=== PATIENT | female | born 1985 | race Hispanic/Latino ===

== ENCOUNTER 2024-08-30 06:39 | Emergency (ER) | payer SELFPAY ==
[~2024-08-30] VITALS: Ht 167.6 cm; Wt 127.1 kg
[2024-08-30 06:58] VITALS: PULSE 85; RESP 16; TEMP 96.5
[2024-08-30] MEDS ORDERED: CIPRO500 MG PO (07:14)
[2024-08-30] MEDS ORDERED: METRONIDAZOLE500 MG PO (07:15)
[2024-08-30] MEDS ORDERED: ONDANSETRON ODT4 MG PO (07:16)
[2024-08-30] MEDS: ACETAMINOPHEN 325 MG TAB PO ONE (07:22)
[2024-08-30 07:28] VITALS: BP 118/58; PULSE 79; RESP 16; TEMP 96.7; O2SAT 98
== END 2024-08-30 07:25 | disposition home or self-care (01) ==
LOC: FSED 07:05
DX: R10.13 Epigastric pain (principal); A09 Infectious gastroenteritis and colitis, unspecified; R11.0 Nausea
CPT/HCPCS: 81025; 99284

== ENCOUNTER 2024-11-20 22:24 | Emergency (ER) | payer OTHER, BC ==
[~2024-11-20] VITALS: Ht 167.6 cm; Wt 128.8 kg
[~2024-11-20 22:24] MED LIST: CIPRO500 MG PO; METRONIDAZOLE500 MG PO; ONDANSETRON ODT4 MG PO
[2024-11-20 22:25] VITALS: PULSE 85; RESP 18; TEMP 98.2
[2024-11-20] MEDS: TRAMADOL HCL 50 MG TAB PO ONE (23:18)
[2024-11-20] MEDS: ASPIRIN 325 MG TAB PO ONE (23:38)
[2024-11-20] MEDS ORDERED: CYCLOBENZAPRINE5 MG PO (23:46)
[2024-11-20 23:50] VITALS: BP 107/62; PULSE 86; RESP 18; TEMP 98.2; O2SAT 99
== END 2024-11-20 23:50 | disposition home or self-care (01) ==
LOC: FSED 22:32
DX: M94.0 Chondrocostal junction syndrome [Tietze] (principal)
CPT/HCPCS: 71046; 80053; 80307; 81003; 81025; 84484; 85025; 85379; 93005; 99284

== ENCOUNTER 2024-12-09 19:35 | Emergency (ER) | payer OTHER, BC ==
[~2024-12-09] VITALS: Ht 167.6 cm; Wt 129.3 kg
[~2024-12-09 19:35] MED LIST changes: +CYCLOBENZAPRINE5 MG PO
[2024-12-09 19:40] VITALS: PULSE 70; RESP 18; TEMP 98.8
[2024-12-09] MEDS ORDERED: THERAFLU NIGHT1 EAC5 PO (21:07)
[2024-12-09] MEDS ORDERED: IBUPROFEN600 MG PO (21:07)
[2024-12-09 21:17] VITALS: BP 124/70; PULSE 70; RESP 18; TEMP 98.8; O2SAT 98
== END 2024-12-09 21:20 | disposition home or self-care (01) ==
LOC: FSED 19:44
DX: R53.81 Other malaise (principal); B34.9 Viral infection, unspecified; M54.50 Low back pain, unspecified; Z11.52 Encounter for screening for COVID-19
CPT/HCPCS: 0223U; 83518 ×2; 87400; 99284

== ENCOUNTER 2025-03-03 09:20 | Emergency (ER) | payer OTHER, BC ==
[~2025-03-03] VITALS: Ht 167.6 cm; Wt 127.0 kg
[~2025-03-03 09:20] MED LIST changes: +IBUPROFEN600 MG PO; +THERAFLU NIGHT1 EAC5 PO
[2025-03-03 09:23] VITALS: TEMP 98.2
[2025-03-03] MEDS ORDERED: METHYLPREDNISOLONE SOD SUCC 125 MG/2ML VIAL IM ONE (09:45)
[2025-03-03] MEDS ORDERED: KETOROLAC TROMETHAMINE 60 MG/2 ML VIAL IM ONE (09:45)
[2025-03-03] MEDS: METHYLPREDNISOLONE SOD SUCC 125 MG/2ML VIAL IV ONE (10:03)
[2025-03-03] MEDS: KETOROLAC TROMETHAMINE 30 MG/ML VIAL IV STA (10:03)
[2025-03-03 10:19] LABS: BASOPHILS % 0.4 % (0.0-1.0); EOSINOPHILS # (AUTO) 0.1 (0.0-0.4); EOSINOPHILS % 0.9 % (0.0-6.0); HEMATOCRIT 37.8 % (34.2-44.1); LYMPHOCYTES # (AUTO) 2.3 (1.0-3.2); LYMPHOCYTES % 25.6 % (18.0-39.1); MEAN CORPUSCULAR HEMOGLOBIN 27.5 pg (28-32); MEAN CORPUSCULAR HGB CONC 31.7 g/dL (31-35); MEAN CORPUSCULAR VOLUME 86.7 fL (81-99); MONOCYTES # (AUTO) 0.6 (0.2-0.8); MONOCYTES % 6.1 % (4.4-11.3); NEUTROPHILS % 65.6 % (38.7-80.0); PLATELET COUNT 195 x10e3/uL (140-360); RED BLOOD COUNT 4.36 x10e6/uL (3.6-5.1); RED CELL DISTRIBUTION WIDTH 14.7 % (11.7-14.4); WHITE BLOOD COUNT 9.07 x10e3/uL (4.8-10.8)
[2025-03-03 10:29] LABS: ALBUMIN 3.6 g/dL (3.5-5.0); ALBUMIN/GLOBULIN RATIO 0.9 (0.8-2.0); ANION GAP 14.1 mmol/L (8-16); BILIRUBIN,TOTAL 0.6 mg/dL (0.2-1.2); CALCIUM 8.8 mg/dL (8.4-10.2); CREATININE, SERUM 0.71 mg/dL (0.57-1.11); POTASSIUM 4.1 mmol/L (3.5-5.1); TOTAL PROTEIN 7.6 g/dL (6.5-8.1)
[2025-03-03] MEDS ORDERED: IOPAMIDOL 370 MG/ML 100 ML INFUS..BTL INJ ONE (10:53)
[2025-03-03 12:00] VITALS: PULSE 66; RESP 18
[2025-03-03] MEDS ORDERED: PROCTOSOL-HC28.35 GM PR (12:55)
[2025-03-03 13:00] VITALS: BP 130/70; PULSE 65; RESP 18; TEMP 98; O2SAT 99
[2025-03-03 13:24] LABS: COLOR,URINE YELLOW (YELLOW)
[2025-03-03 13:25] LABS: BILIRUBIN,URINE NEGATIVE (NEGATIVE); CLARITY,URINE CLEAR (CLEAR); GLUCOSE, URINE NEGATIVE (NEGATIVE); KETONES,URINE NEGATIVE (NEGATIVE); LEUKOCYTE ESTERASE ,URINE NEGATIVE (NEGATIVE); NITRITE,URINE NEGATIVE (NEGATIVE); PH,URINE 7 (5 - 7); PROTEIN,URINE DIPSTICK NEGATIVE (NEGATIVE); URINE UROBILINOGEN 0.2 mg/dL (0.2 - 1)
[2025-03-03 13:41] LABS: PREGNANCY TEST, URINE NEGATIVE (NEGATIVE)
[2025-03-03 13:44] LABS: BACTERIA,URINE FEW /HPF; EPITHELIAL CELLS,URINE FEW /LPF
== END 2025-03-03 13:45 | disposition home or self-care (01) ==
LOC: ER 09:27
DX: K62.5 Hemorrhage of anus and rectum (principal); K64.8 Other hemorrhoids; E66.9 Obesity, unspecified
CPT/HCPCS: 36415; 74177; 80053; 81001; 81025; 84702; 85025; 99284; J1885; J2919; Q9967

== ENCOUNTER 2025-04-19 01:08 | Emergency (ER) | payer OTHER, BC ==
[~2025-04-19] VITALS: Ht 167.6 cm; Wt 127.0 kg
[~2025-04-19 01:08] MED LIST changes: +PROCTOSOL-HC28.35 GM PR
[2025-04-19 01:38] VITALS: PULSE 98; RESP 16; TEMP 101.4
[2025-04-19] MEDS: ACETAMINOPHEN 325 MG TAB PO ONE (02:27)
[2025-04-19] MEDS: KETOROLAC TROMETHAMINE 30 MG/ML VIAL IM STA (02:27)
[2025-04-19 02:43] LABS: CORONAVIRUS COVID-19 AG POSITIVE (NEGATIVE); STREPTOCOCCUS GRP A ANTIGEN POSITIVE (NEGATIVE)
[2025-04-19] MEDS ORDERED: AMOXICILLIN500 MG PO (02:49)
[2025-04-19 03:38] VITALS: BP 102/78; PULSE 92; RESP 16; TEMP 98.9; O2SAT 98
== END 2025-04-19 03:39 | disposition home or self-care (01) ==
LOC: ER 01:30
DX: R50.9 Fever, unspecified (principal); B34.2 Coronavirus infection, unspecified; J02.0 Streptococcal pharyngitis; E66.9 Obesity, unspecified
CPT/HCPCS: 83518; 87428; 99283; J1885